=== PATIENT | male | born 1980 | race Caucasian/White ===

== ENCOUNTER 2016-06-27 20:10 | Emergency (ER) | payer SELFPAY ==
--- NOTE | ~2016-06-27 | CR195 ---
[facility] A Service of [facility] & [facility] RADIOLOGY TEXT RESULTS PATIENT: CLEMENTE CANDELARIA LOCATION: SED : [birth year] UNIT #: [id number] AGE: [address]: EDI TOUSSAINT SEX: M ORDER DR: [id number] [place] [id number] E MR#: [id number] Acc #: [id number] NAME: CLEMENTE CANDELARIA. : 1980 SEX: M STUDY DATE/TIME: 06/27/2016 20:09 UNIT: SED ROOM: STUDY DESCRIPTION: CR Neck Soft Tissue Attending Physician: Edi Toussaint Ordering Physician: Donnie Not Listed Primary Care Physician: No Primary Care Physician MEDICAL IMAGING REPORT This report is preliminary unless electronic signature is present. EXAM Soft tissue neck, 2 views. HISTORY Right lower jaw pain for 5 days. No injury. FINDINGS AP and lateral soft tissue views of the neck demonstrate mild mid-right cervical curve. No precervical soft tissue swelling. No oropharyngeal airway narrowing or tracheal displacement. No opaque soft tissue foreign body. IMPRESSION No acute finding. No oropharyngeal airway narrowing or displacement. No opaque foreign body. Dictated by... Sebastian Fan M.D. THIS IS AN ELECTRONICALLY VERIFIED REPORT Sebastian Fan M.D. at 06/28/2016 3:05 PM MIK/raquel TD: 06/28/2016 09:34 JOB #: [id number] MEDICAL IMAGING REPORT Page 1 of 1
[~2016-06-27 20:10] MED LIST: ACETAMINOPHEN PO; BACTRIM DS TABL1 TA2 PO; BACTROBAN15 GM TOP; KEFLEX500 M1 PO; NAPROXEN500 M1 PO; NO MEDICATIONS
== END 2016-06-27 21:40 | disposition home or self-care (01) ==
LOC: SED 20:10
DX: K05.10 Chronic gingivitis, plaque induced (principal); J02.0 Streptococcal pharyngitis
CPT/HCPCS: 70360; 87880; 96372; 99283; 99284; J0561; J1885

== ENCOUNTER 2016-08-31 23:22 | Emergency (ER) | payer SELFPAY ==
[2016-09-02] MEDS ORDERED: IBUPROFEN800 MG (02:06)
[2016-09-02] MEDS ORDERED: AMOXICILLIN (02:06)
== END 2016-09-01 00:02 | disposition home or self-care (01) ==
LOC: SED 23:22
DX: K02.9 Dental caries, unspecified (principal)
CPT/HCPCS: 99282

== ENCOUNTER 2016-09-02 02:00 | Emergency (ER) | payer OTHER ==
[2016-09-02] MEDS ORDERED: IBUPROFEN800 MG (02:06)
[2016-09-02] MEDS ORDERED: AMOXICILLIN (02:06)
== END 2016-09-02 03:54 | disposition home or self-care (01) ==
LOC: SED 02:00
DX: K08.89 Other specified disorders of teeth and supporting structures (principal)
CPT/HCPCS: 99282

== ENCOUNTER 2016-12-22 20:27 | Emergency (ER) | payer OTHER ==
[~2016-12-22] VITALS: Ht 190.5 cm; Wt 68.0 kg
--- NOTE | ~2016-12-22 | CT4 ---
[facility] A Service of [facility] RADIOLOGY TEXT RESULTS PATIENT: CLEMENTE CANDELARIA LOCATION: SED : [birth year] UNIT #: [id number] AGE: [address]: Ata Qureshi MD SEX: M ORDER DR: [id number] [place] [id number] E MR#: [id number] Acc #: [id number] NAME: CLEMENTE CANDELARIA : 1980 SEX: M STUDY DATE/TIME: 12/22/2016 21:25 UNIT: SED ROOM: STUDY DESCRIPTION: CT Abd and Pelv Wo Cont Attending Physician: Ata Qureshi M.D. Ordering Physician: Ricki Qureshi M.D. Primary Care Physician: Primary Care Physician No MEDICAL IMAGING REPORT This report is preliminary unless electronic signature is present. EXAM CT abdomen and pelvis, 12/22/2016 INDICATION Right flank pain with muscle spasms and dysuria for 1 week. Constipation for 1 week. TECHNIQUE Axial noncontrast images were obtained through the abdomen and pelvis. Multiplanar reformats were obtained. No comparison. This CT exam was performed with one or more of the following radiation dose reduction techniques: automatic exposure control, adjustment of mA and/or kV according to patient size, and iterative reconstruction. FINDINGS ABDOMEN: Lung bases are clear. Gallbladder is normal. No renal or ureteral stones. No hydronephrosis. Unenhanced solid organs are normal. Moderate stool in the colon is consistent with the given history of constipation. Unopacified GI tract is otherwise normal. No free fluid. PELVIS: Urinary bladder is normal. There are no lower ureteral stones. There is no free fluid. The appendix is normal. Moderate stool in the colon compatible with constipation. Distal small bowel is normal. IMPRESSION 1. Moderate stool volume in the colon in keeping with the given history of constipation. The GI tract, including the appendix, is otherwise normal. 2. No renal or ureteral stones. No hydronephrosis. [facility] A Service of [facility] RADIOLOGY TEXT RESULTS PATIENT: CLEMENTE CANDELARIA [id number] [birth year] UNIT #: [id number] AGE: [address]: Ata Qureshi MD SEX: M ORDER DR: Dictated by... Fernando Martinez Jr., M.D. THIS IS AN ELECTRONICALLY VERIFIED REPORT Fernando Martinez Jr., M.D. at 12/23/2016 10:02 AM MARANDA/harshal TD: 12/22/2016 23:17 JOB #: [id number] MEDICAL IMAGING REPORT Page 1 of 1
[~2016-12-22 20:27] MED LIST changes: +AMOXICILLIN; +IBUPROFEN800 MG
[2016-12-22] MEDS ORDERED: NO MEDICATIONS (20:40)
[2016-12-22] MEDS ORDERED: TYLENOL PM PO (20:41)
[2016-12-22 21:54] LABS: BASOPHIL# 0.1 X10e3 (0-0.3); BASOPHIL% 0.8 % (0-2.5); EOSINOPHIL# 0.2 X10e3 (0-0.7); EOSINOPHIL% 2.6 % (0.0-7.0); HEMATOCRIT 40.6 % (38.0-50.0); HEMOGLOBIN 13.7 gm/dL (13.0-16.0); LYMPHOCYTE# 1.8 X10e3 (1.0-3.5); LYMPHOCYTE% 26.5 % (17.0-45.0); MEAN CELL VOLUME 90.2 FL (83-96); MEAN CORPUSCULAR HEMOGLOBIN 30.3 PG (28-34); MEAN CORPUSCULAR HGB CONC 33.6 g/dL (30-36); MEAN PLATELET VOLUME 9.7 FL (6.5-11.5); MONOCYTE# 0.4 X10e3 (0-1.0); MONOCYTE% 6.3 % (3.0-12.0); NEUTROPHIL# 4.4 X10e3 (1.5-7.1); NEUTROPHIL% 63.8 % (40-75); PLATELET COUNT 132 X10e3 (140-420); RED CELL DISTRIBUTION WIDTH 12.8 % (11.0-15.5); WHITE BLOOD COUNT 6.9 X10e3 (4.0-10.5)
[2016-12-22 21:55] LABS: DIFF IND NO
[2016-12-22 22:13] LABS: URINE SOURCE CLEAN CATCH
[2016-12-22 22:14] LABS: ALBUMIN SERUM 4.4 g/dL (3.5-5.0); BILIRUBIN, DIRECT 0.2 mg/dL (0.0-0.2); BILIRUBIN,INDIRECT 0.6 mg/dL (0.0-0.9); BILIRUBIN,TOTAL 0.8 mg/dL (0.2-2.0); BUN/CREATININE RATIO 11.81; CALCIUM SERUM 8.8 mg/dL (8.4-10.2); CREATININE SERUM 1.1 mg/dL (0.6-1.4); GLOM FILT RATE Estimated 85.9 mL/min (>60); POTASSIUM 3.7 mmol/L (3.5-5.1)
[2016-12-22 22:16] LABS: MICRO INDICATED? NO; URINE APPEARANCE CLEAR; URINE BILIRUBIN NEG (NEG); URINE BLOOD NEG (NEG); URINE COLOR YELLOW; URINE GLUCOSE NEG (NORM); URINE KETONE NEG (NEG); URINE LEUKOCYTE ESTERASE NEG (NEG); URINE NITRATE NEG (NEG); URINE PROTEIN NEG (NEG); URINE SPECIFIC GRAVITY 1.015 (1.003-1.035)
== END 2016-12-22 23:30 | disposition home or self-care (01) ==
LOC: SED 20:27
PROVIDERS: Emergency Medicine
DX: K59.00 Constipation, unspecified (principal); G89.29 Other chronic pain; M54.5 Low back pain
CPT/HCPCS: 36415; 74176; 80048; 80076; 81003; 83690; 85025; 96374; 99284; J1885